=== PATIENT | female | born 1975 | race Caucasian/White ===

== ENCOUNTER 2018-07-22 12:29 | Emergency (ER) | payer OTHER ==
[2018-07-22 12:40] VITALS: BMI 20.3
--- NOTE | 2018-07-22 12:48 | PDOC ---
History of Present Illness - General Chief Complaint: Lightheaded Stated Complaint: FEVER, BODYACHES Time Seen by Provider: 07/22/18 12:47 History Source: Patient Exam Limitations: No Limitations - History of Present Illness Initial Comments: 07/22/18 12:55 43 year old female with PMH multiple UTIs (04/2018, 01/2018) presenting for left sided flank pain x3 days associated with urinary urgency, headache and fever. She denies abdominal pain, nausea, vomiting, diarrhea, constipation, blood in stool, hematuria, vaginal bleeding, vaginal discharge, chest pain, shortness of breath. LMP - 07/03/18 PCP - none Allergies - NKDA Past History - Past Medical History Allergies/Adverse Reactions: Allergies Allergy/AdvReac Type Severity Reaction Status Date / Time No Known Allergies Allergy Verified 07/22/18 12:30 Home Medications: Ambulatory Orders No Home Medications 0 dose .ROUTE UTDICT 09/12/13 Cefpodoxime Proxetil [Vantin -] 200 mg PO BID #20 tablet 07/22/18 COPD: No DVT: No Diabetes: Yes (pre-diabetic) - Immunization History Immunization Up to Date: No - Suicide/Smoking/Psychosocial Hx Smoking History: Never smoked Have you smoked in the past 12 months: No Number of Cigarettes Smoked Daily: 0 Information on smoking cessation initiated: No Hx Alcohol Use: No Drug/Substance Use Hx: No Substance Use Type: None Review of Systems - Review of Systems Able to Perform ROS?: Yes Comments:: 07/22/18 12:58 General: admits to fever, chills, sweats. HEENT: denies sore throat, rhinorrhea, ear pain. Heart: denies chest pain, palpitations, syncope, lower extremity swelling, diaphoresis. Respiratory: denies shortness of breath, cough, sputum production, hematemesis. Abdomen: denies abdominal pain, nausea, vomiting, diarrhea, constipation, blood in stool. : admits to flank pain, urinary urgency. denies dysuria, increased urinary frequency, hematuria, urinary incontinence. Back: denies back pain. Musculoskeletal: denies joint pain, muscle pain, joint swelling. Neurological: admits to headache. denies dizziness, numbness, tingling, weakness. Skin: denies rash, laceration, abrasion. *Physical Exam - Vital Signs Last Vital Signs Temp Pulse Resp BP Pulse Ox 100.1 F H 104 H 18 132/70 100 07/22/18 12:32 07/22/18 12:32 07/22/18 12:32 07/22/18 12:32 07/22/18 12:32 - Physical Exam Comments: 07/22/18 12:58 Appearance: comfortable. HEENT: head is normocephalic, atraumatic. EOMI. PERRLA. Neck: supple. Full ROM. Heart: regular rhythm. no murmurs, rubs or gallops. No pericardial friction rub. Lungs: clear to auscultation bilaterally. no crackles, rhonchi or wheezing. no stridor. Abdomen: soft, nontender. normal bowel sounds. no rebound, guarding, masses. Back: no CVA tenderness bilaterally. Extremities: Peripheral pulses intact and equal. No lower extremity edema. Neurological: Alert. Oriented x3. CN 2-12 grossly intact. Moves all four extremities. ED Treatment Course - LABORATORY CBC & Chemistry Diagram: 07/22/18 15:17 07/22/18 15:17 Medical Decision Making - Medical Decision Making 07/22/18 12:59 43 year old female with PMH multiple UTIs presenting to ED for left flank pain x3 days associated with headache, urinary urgency, fever. Initial Vital Signs Temp Pulse Resp BP Pulse Ox 100.1 F H 104 H 18 132/70 100 07/22/18 12:32 07/22/18 12:32 07/22/18 12:32 07/22/18 12:32 07/22/18 12:32 Febrile. Tachycardic. No hypotension. Tylenol give for fever. UA positive for blood and leukocyte esterase. Ceftriaxone ordered. Urine test negative. Pending labs. Pending CT abdomen pelvis. 07/22/18 17:[address] 07/22/18 18:27 Radiology has been called multiple times for a CT read. 07/22/18 18:38 CT A/P report: subtle 1 mm density seen at or imediately adjacent to the right uretovesical ujnction, possibly representing a claculus (versus an incidental plebolith). Incidental 3.9 cm thick-walled complex fluid structure is noted along the uterine fundus venrally, possibly representing a degenerating leiomyoma and less likely a contiguous adnexal lesion. Recommends non-emergent MRI. Multiple leiomyomas noted. Pt will be discharged with prescription for Vantin, referral for PCP, follow up instructions and strict return precautions. *DC/Admit/Observation/Transfer Diagnosis at time of Disposition: Urinary tract infection, Nephrolithiasis - Discharge Dispostion Disposition: HOME Condition at time of disposition: Stable Decision to Admit order: No - Prescriptions Prescriptions: Cefpodoxime Proxetil [Vantin -] 200 mg PO BID #20 tablet - Referrals - Patient Instructions Printed Discharge Instructions: DI for Urinary Tract Infection (UTI) Additional Instructions: You were seen today for left flank pain. Your blood work was normal. Your urine analysis revealed a urinary tract infection. Your CT of your abdomen and pelvis revealed a possible small (1 mm) stone, that is non-obstructing. Incidentally a 3.9 cm thick-walled fluid structure was identified on your uterus. Please follow up with your OBGYN regarding this for a non-emergent MRI. I have included a copy of your report in your discharge paperwork. You received one dose of an antibiotic here in the Emergency Department. You received Tylenol for your pain. I have prescribed an antibiotic and sent it to your pharmacy. Take all pills as instructed. Do not miss any doses. Take all pills. Take a pro-biotic to prevent antibiotic associated diarrhea. Drink lots of clear fluids, like water or Gatorade, to stay hydrated. Please follow up with your primary care doctor within 5 days. I have set up an appointment for you with [facility]. Bring the paperwork given to you today with you to your appointment. Please follow up with your OBGYN within 5 days. Call tomorrow morning and make an appointment for this week. Bring the paperwork given to you today with you to your appointment. Return to the Emergency Department for fever non-responsive to Tylenol, weakness , increasing pain, chest pain, shortness of breath, or any new, worsening or concerning symptoms. - Post Discharge Activity
[2018-07-22] MEDS ORDERED: ACETAMINOPHEN 500 MG TABLET (FP) PO ONE (12:55)
[2018-07-22] MEDS ORDERED: ACETAMINOPHEN 325 MG TABLET (FP) ONE ×2 (13:18→13:21)
[2018-07-22 13:36] LABS: URINE APPEARANCE SLCLOUDY; URINE BILIRUBIN NEGATIVE (<2.0 mg/dL); URINE COLOR YELLOW; URINE GLUCOSE (UA) NEGATIVE (NEGATIVE); URINE KETONE TRACE (NEGATIVE); URINE NITRITE POSITIVE (NEGATIVE); URINE PROTEIN NEGATIVE (NEGATIVE); URINE UROBILINOGEN NEGATIVE mg/dL (0.2-1.0)
[2018-07-22 13:37] LABS: URINE LEUK ESTERASE 1+ (NEGATIVE)
[2018-07-22 14:01] LABS: EPI CELLS RARE /HPF (FEW); URINE BACTERIA MANY /hpf (NONE SEEN); URINE MUCUS FEW
--- NOTE | 2018-07-22 14:03 | PDOC ---
Attending Attestation - HPI HPI: The patient is a 43 year old Kinyarwanda-speaking female with PMHx of multiple UTI' s (January & April 2018), who presents with 3 days of left-sided flank pain. She also reports associated fever, chills, diaphoresis, headache and urinary urgency. She denies recent abdominal pain, nausea, vomiting, diarrhea, constipation, hematochezia, hematuria, vaginal bleeding or discharge, chest pain, shortness of breath. LMP - 07/03/18 PCP - none Allergies - NKDA - Physicial Exam PE: GENERAL: The patient is in no acute distress. HEAD: Normal with no signs of trauma. EYES: PERRLA, EOMI, sclera anicteric, conjunctiva clear. ENT: Ears normal, nares patent, oropharynx clear without exudates. Moist mucous membranes. NECK: Normal range of motion, supple without lymphadenopathy, JVD, or masses. LUNGS: Breath sounds equal, clear to auscultation bilaterally. No wheezes, and no crackles. HEART:Regular rate and rhythm, normal S1 and S2 without murmur, rub or gallop. ABDOMEN: Soft, nontender, normoactive bowel sounds. No guarding, no rebound. BACK:Mild left-sided flank tenderness. EXTREMITIES: Normal range of motion, no edema. No clubbing or cyanosis. No erythema, or tenderness. NEUROLOGICAL: Cranial nerves II through XII grossly intact. Normal speech. No focal neurological deficits. MUSCULOSKELETAL: Back nontender to palpation, no CVA tenderness SKIN: Warm, Dry, normal turgor, no rashes or lesions noted. <Michaelle Whitmore - Last Filed: 07/22/18 15:49> - Resident Resident Name: Margot Miramontes - ED Attending Attestation I have performed the following: I have examined & evaluated the patient, The case was reviewed & discussed with the resident, I agree w/resident's findings & plan, Exceptions are as noted - Medical Decision Making 07/22/18 15:48 Laboratory Tests 07/22/18 07/22/18 07/22/18 12:00 12:00 15:17 WBC 8.3 Hgb 10.1 L Hct 31.7 L Plt Count 252 D Neutrophils % 64.7 D Lymphocytes % 20.3 D Urine Blood 2+ H Urine Nitrite Positive Ur Leukocyte Esterase 1+ H Urine WBC (Auto) 25 Urine RBC (Auto) 2 Ur Epithelial Cells Rare Urine HCG, Qual Negative Bedside US demonstrated Left hydronephrosis Will do CT 07/22/18 15:[address] (pt with blood and WBC, and flank pain, will rule out infected stone ) If no stone, pt can be discharged on Cefpodoxime for pyelonephritis <Lacy Muse - Last Filed: 07/22/18 15:56>
[2018-07-22] MEDS ORDERED: CEFTRIAXONE 1 GM in DEXTROSE 5%-WATER - 100 ML IVPB ONE (14:27)
[2018-07-22 15:26] LABS: BASO % 0.4 % (0-2.0); EOS % 4.5 % (0-4.5); HEMATOCRIT 31.7 % (32.4-45.2); HEMOGLOBIN 10.1 GM/dL (10.7-15.3); LYMPH % 20.3 % (8-40); MCH 22.1 pg (25.7-33.7); MEAN CELL VOLUME 69.2 fl (80-96); MEAN PLT VOLUME 9.2 fl (7.5-11.1); MONO % 10.1 % (3.8-10.2); NEUT % 64.7 % (42.8-82.8); PLATELET COUNT 252 K/MM3 (134-434); RBC 4.58 M/mm3 (3.60-5.2); RDW 14.4 % (11.6-15.6); WHITE BLOOD COUNT 8.3 K/mm3 (4.0-10.0)
[2018-07-22] MEDS ORDERED: CEFTRIAXONE 1 GM/50 ML BAG ONE (15:29)
[2018-07-22 16:00] VITALS: BP 115/73; PULSE 87
[2018-07-22 16:08] LABS: ALBUMIN 3.3 g/dl (3.4-5.0); ANION GAP 9 MMOL/L (8-16); BLOOD UREA NITROGEN 9 mg/dL (7-18); CALCIUM 8.6 mg/dL (8.5-10.1); CHLORIDE 104 mmol/L (98-107); CO2 26 mmol/L (21-32); GLUCOSE,RANDOM 83 mg/dL (74-106); LIPASE 200 U/L (73-393); POTASSIUM 3.9 mmol/L (3.5-5.1); SGPT/ALT 12 U/L (12-78); SODIUM 139 mmol/L (136-145)
[2018-07-22 16:14] LABS: ALK PHOS 59 U/L (45-117); BILIRUBIN,TOTAL 0.3 mg/dL (0.2-1.0); CREATININE 0.5 mg/dL (0.55-1.02); SGOT/AST 12 U/L (15-37); TOT PROT 7.1 g/dl (6.4-8.2)
[2018-07-22 16:36] LABS: ANISOCYTOSIS OCCASIONAL; PLATELET ESTIMATE ADEQUATE
[2018-07-22 18:46] VITALS: TEMP 98.6
== END 2018-07-22 19:37 | disposition home or self-care (01) ==
LOC: SUPCPDRO 12:29 → JER 12:29
DX: N39.0 Urinary tract infection, site not specified (principal); R31.9 Hematuria, unspecified; N20.0 Calculus of kidney; D25.9 Leiomyoma of uterus, unspecified
CPT/HCPCS: 36415; 74176-TC; 80053; 81003; 81015; 82550; 83690; 84484; 84703; 85025; 87086; 87186; 99282-25

== ENCOUNTER 2018-09-25 14:10 | Emergency (ER) | payer OTHER ==
[2018-09-25 14:15] VITALS: BMI 26.4
--- NOTE | 2018-09-25 15:19 | PDOC ---
History of Present Illness - General Chief Complaint: Blood Pressure Problem Stated Complaint: Blood Pressure Problem Time Seen by Provider: 09/25/18 15:19 History Source: Patient - History of Present Illness Initial Comments: 09/25/18 15:30 The patient is a 43 year old female with a PMH of pre-diabetes who presents to our ED this afternoon following an episode in which she suddenly felt as if she was underwater - her ears were full though she could hear background noises. Patient was evaluated by a nurse at the [employer] [place] where she worked where her SBP was noted to be in the 180's and patient was sent to our ED for further evaluation. Patient denies any associated chest pain, shortness of breath, lightheadedness, palpitations. States immediately before the episode she was feeling overwhelmed thinking about life stressors including her demanding work schedule. 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 Notes she was evaluated by her PMD recently and was told she was pre-diabetic and she should attempt weight loss and dietary modification. Patient denies abdominal pain, nausea/vomiting, diarrhea/constipation, dysuria/ hematuria, numbness/tingling. NKDA Surgical: none reported Social: denies toxic habits PMD: Dr. Abdias Lyons As per EMR, patient last evaluated in or ED in 06/2018 at which time she was diagnosed with a UTI. Past History - Past Medical History Allergies/Adverse Reactions: Allergies Allergy/AdvReac Type Severity Reaction Status Date / Time No Known Allergies Allergy Verified 09/25/18 14:13 Home Medications: Ambulatory Orders No Home Medications 0 dose .ROUTE UTDICT 09/12/13 COPD: No DVT: No Diabetes: Yes (pre-diabetic) - Immunization History Immunization Up to Date: No - Suicide/Smoking/Psychosocial Hx Smoking History: Never smoked Have you smoked in the past 12 months: No Number of Cigarettes Smoked Daily: 0 Hx Alcohol Use: No Drug/Substance Use Hx: No Substance Use Type: None Review of Systems - Review of Systems Constitutional: No: Chills, Fever HEENTM: No: Blurred Vision, Double Vision Respiratory: No: Cough, Shortness of Breath Cardiac (ROS): No: Chest Pain, Lightheadedness, Palpitations, Syncope ABD/GI: No: Constipated, Diarrhea, Nausea, Vomiting : No: Burning, Dysuria Psychiatric: Yes: Anxiety, Stressors *Physical Exam - Vital Signs Last Vital Signs Temp Pulse Resp BP Pulse Ox 98 F 118 H 22 H 173/84 H 100 09/25/18 14:13 09/25/18 14:13 09/25/18 14:13 09/25/18 14:13 09/25/18 14:13 - Physical Exam General Appearance: Yes: Nourished, Appropriately Dressed, Intoxicated HEENT: positive: TRACE. negative: TM Bulging, TM Dull, TM Erythema Neck: positive: Trachea midline, Supple. negative: Lymphadenopathy (R), Lymphadenopathy (L) Respiratory/Chest: positive: Lungs Clear, Normal Breath Sounds Cardiovascular: positive: S1, S2. negative: Edema, JVD Vascular Pulses: Dorsalis-Pedis (R): 2+, Doralis-Pedis (L): 2+ Gastrointestinal/Abdominal: positive: Normal Bowel Sounds, Soft Integumentary: positive: Normal Color, Dry, Warm Neurologic: positive: patient appointment coordinator II-XII NML intact, Fully Oriented, Alert Heart Score/ECG Review - ECG Impressions Comment:: 09/25/18 18:51 Sinus Tachycardia HR 109 no WILBERT/STD/TWI - no prior ECG in system ED Treatment Course - LABORATORY CBC & Chemistry Diagram: 09/25/18 15:50 09/25/18 15:50 Medical Decision Making - Medical Decision Making 09/25/18 15:33 43 year old female presents following resolved episode of ear fullness. Hypertensive @ presentation. No focal neurologic deficits on PE. Frontal diagnosis: anxiety attack, TIA, ear infection, dehydration. Will obtain basic labs, urine , EKG, CT head. Reassess. ECG shows NSR HR 109 with no WILBERT/STD/TWI - no previous ECG in system 09/25/18 16:50 CBC, CMP unremarkable Normotensive 09/25/18 16:50 CT head negative for ischemic process Patient remains intermittently tachycardic (low 100's) will give 1 L IV NS, reassess. 09/25/18 17:47 VSS Patient now normotensive, observed for 2+ hours with no repeat symptoms. Negative head CT -- less concerning for acute life threatening pathology. Clinical suspicion for elevated BP and neuro symptoms likely 2/2 to panic attack. Will discharge patient home with return precautions and PMD follow-up. I discussed the physical exam findings, ancillary test results and final diagnoses with the patient. I answered all of the patient's questions. The patient was satisfied with the care received and felt comfortable with the discharge plan and treatment plan. The patient will return to the Emergency Department with any new, persistent or worsening symptoms. *DC/Admit/Observation/Transfer Diagnosis at time of Disposition: Tachycardia - Discharge Dispostion Disposition: HOME Condition at time of disposition: Good Decision to Admit order: No - Referrals Referrals: Eloy Calero MD [Primary Care Provider] - - Patient Instructions Printed Discharge Instructions: DI for High Blood Pressure Additional Instructions: Your labs, EKG and a cat scan of your head showed no concerning findings. At this time you are safe for discharge home. You must see your primary care doctor in the next 3 days to follow up on your isolated blood pressure reading and evaluation of your general health. Return to the Emergency Department for any new/worsening/concerning symptoms. Dari laboratorios, electrocardiogramas y electrocardiogramas y un escaneo de juan micah de mamadou no mostraron hallazgos preocupantes. En hans momento usted est seguro para el cindy del hogar. Debe consultar a juan mdico de atencin primaria en los prximos 3 pulido para hacer un seguimiento de juan lectura aislada de la presin arterial y de juan estado de christen general. Regrese al Departamento de Emergencias para cualquier sntoma nuevo / que empeora / relacionado. - Post Discharge Activity Forms/Work/School Notes: Back to Work
--- NOTE | 2018-09-25 15:55 | PDOC ---
Attending Attestation - Resident Resident Name: Efrain Templetonica - ED Attending Attestation I have performed the following: I have examined & evaluated the patient, The case was reviewed & discussed with the resident, I agree w/resident's findings & plan, Exceptions are as noted - HPI HPI: 09/25/18 16:52 Ms Young Is a 43-year-old female presented to emergency department with a complaint of ear fullness and mild lightheadedness. This happened while at work today. No associated chest pain, palpitations, shortness of breath. No associated headache. No focal weakness or numbness. Symptoms persisted until arrival to the emergency department. Does like this. Patient believes this is related to stress - Physicial Exam PE: 09/25/18 16:53 GENERAL: The patient is in no acute distress. LUNGS: Breath sounds equal, clear to auscultation bilaterally. No wheezes, and no crackles. HEART:Regular rate and rhythm, normal S1 and S2 without murmur, rub or gallop. ABDOMEN: Soft, nontender, normoactive bowel sounds. No guarding, no rebound. No masses palpable. EXTREMITIES: Normal range of motion, no edema. NEUROLOGICAL: Cranial nerves II through XII grossly intact. Normal speech. No focal neurological deficits. MUSCULOSKELETAL: Back non-tender to palpation SKIN: Warm, Dry, normal turgor, no rashes or lesions noted. - Medical Decision Making 09/25/18 16:59 Twelve-lead EKG was performed and reviewed by me. There is normal sinus rhythm with a tachycardiac rate of 109 bpm. The axis is normal. The intervals are normal - pr:160ms, QRS:92ms, QTc:484ms. There are no ST or T wave abnormalities. 09/25/18 16:59 Laboratory Tests 09/25/18 09/25/18 09/25/18 15:50 15:50 15:59 WBC 8.1 Hgb 11.4 Hct 36.8 D Plt Count 340 D BUN 14 Creatinine 0.5 L Urine HCG, Qual Negative Will re assess vital signs Will check CT 09/26/18 10:49 CT no acute findings Pt states she feels better She is anxious to go home Follow up with PMD Return to the ER for any other concerns or complaints
[2018-09-25 16:14] LABS: BASO % 0.5 % (0-2.0); EOS % 0.2 % (0-4.5); HEMATOCRIT 36.8 % (32.4-45.2); HEMOGLOBIN 11.4 GM/dL (10.7-15.3); LYMPH % 17.1 % (8-40); MCH 21.5 pg (25.7-33.7); MCHC 30.9 g/dl (32.0-36.0); MEAN CELL VOLUME 69.4 fl (80-96); MEAN PLT VOLUME 8.7 fl (7.5-11.1); MONO % 4.6 % (3.8-10.2); NEUT % 77.6 % (42.8-82.8); PLATELET COUNT 340 K/MM3 (134-434); RBC 5.31 M/mm3 (3.60-5.2); RDW 14.8 % (11.6-15.6); WHITE BLOOD COUNT 8.1 K/mm3 (4.0-10.0)
[2018-09-25 16:24] LABS: ADD RBC MORPHOLOGY YES
[2018-09-25] MEDS ORDERED: SODIUM CHLORIDE 0.9% 500 ML INFUS.BAG IV ONE (16:25)
[2018-09-25 16:47] LABS: ALBUMIN 3.8 g/dl (3.4-5.0); ALK PHOS 55 U/L (45-117); ANION GAP 11 MMOL/L (8-16); BILIRUBIN,TOTAL 0.2 mg/dL (0.2-1); BLOOD UREA NITROGEN 14 mg/dL (7-18); CALCIUM 8.6 mg/dL (8.5-10.1); CHLORIDE 106 mmol/L (98-107); CO2 23 mmol/L (21-32); CREATININE 0.5 mg/dL (0.55-1.3); GLUCOSE,RANDOM 93 mg/dL (74-106); POTASSIUM 3.9 mmol/L (3.5-5.1); SGOT/AST 11 U/L (15-37); SGPT/ALT 16 U/L (13-61); SODIUM 140 mmol/L (136-145); TOT PROT 7.3 g/dl (6.4-8.2)
[2018-09-25 18:23] VITALS: BP 134/85; PULSE 100; TEMP 98.9
[2018-09-25 19:14] LABS: ANISOCYTOSIS 1+
[2018-09-25 19:15] LABS: PLATELET ESTIMATE ADEQUATE
--- NOTE | 2018-09-26 14:50 | EKG ---
Test Reason : Blood Pressure : / mmHG Vent. Rate : 109 BPM Atrial Rate : 109 BPM P-R Int : 160 ms QRS Dur : 092 ms QT Int : 360 ms P-R-T Axes : 063 025 027 degrees QTc Int : 484 ms SINUS TACHYCARDIA OTHERWISE NORMAL ECG NO PREVIOUS ECGS AVAILABLE Confirmed by ROGELIO PINO MD ([id number]) on 09/26/2018 2:49:32 PM Referred By: Confirmed By:ROGELIO PINO MD
== END 2018-09-25 18:50 | disposition home or self-care (01) ==
LOC: JER 14:10
PROC: 3E0337Z Introduction of Electrolytic and Water Balance Substance into Peripheral Vein, Percutaneous Approach (ICD-10-PCS; principal; 2018-09-25)
DX: R00.0 Tachycardia, unspecified (principal); R73.03 Prediabetes
CPT/HCPCS: 36415; 70450-TC; 80053; 84703; 85025; 93005; 93010; 99284-25

== ENCOUNTER 2020-12-31 21:26 | Emergency (ER) | payer OTHER ==
[2020-12-31 21:48] VITALS: TEMP 98.4; BMI 24.2
[2020-12-31 22:44] VITALS: BP 166/90; PULSE 95
== END 2020-12-31 23:21 | disposition home or self-care (01) ==
LOC: JER 21:26
DX: I10 Essential (primary) hypertension (principal)
CPT/HCPCS: 93005; 93010; 99284-25

== ENCOUNTER 2023-03-21 14:59 | Emergency (ER) | payer OTHER ==
[2023-03-21 15:11] VITALS: RESP 18; BMI 25.6
[2023-03-21] MEDS ORDERED: SODIUM CHLORIDE 1,000 ML IV STA (15:59)
[2023-03-21] MEDS ORDERED: ACETAMINOPHEN 1000 MG/100 ML BAG IVPB ONE (16:23)
[2023-03-21] MEDS ORDERED: ACETAMINOPHEN INJECTION 100 ML IVPB ONE (16:38)
[2023-03-21 17:44] VITALS: BP 157/71; PULSE 99; TEMP 98.9
[2023-03-21 17:44] LABS: BASO % 0.5 % (0-2.0); EOS % 0.1 % (0-4.5); HEMATOCRIT 36.4 % (32.4-45.2); HEMOGLOBIN 11.8 GM/dL (10.7-15.3); LYMPH % 21.9 % (8-40); MCH 22.5 pg (25.7-33.7); MCHC 32.5 g/dl (32.0-36.0); MEAN CELL VOLUME 69.1 fl (80-96); MEAN PLT VOLUME 9.1 fl (7.5-11.1); MONO % 7.3 % (3.8-10.2); NEUT % 70.2 % (42.8-82.8); PLATELET COUNT 297 10^3/uL (134-434); RBC 5.27 M/mm3 (3.60-5.2); RDW 14.4 % (11.6-15.6)
[2023-03-21 17:45] LABS: PH,URINE 5.5 (5.0-8.0); URINE APPEARANCE CLEAR; URINE BILIRUBIN NEGATIVE (NEGATIVE); URINE COLOR YELLOW; URINE GLUCOSE (UA) NEGATIVE (NEGATIVE); URINE KETONE NEGATIVE (NEGATIVE); URINE LEUK ESTERASE NEGATIVE (NEGATIVE); URINE NITRITE NEGATIVE (NEGATIVE); URINE PROTEIN NEGATIVE (NEGATIVE); URINE UROBILINOGEN 0.2 mg/dL (0.2-1.0)
[2023-03-21 17:48] LABS: HCG,QUALITATIVE URINE Negative
[2023-03-21 17:50] LABS: PROTHROMBIN TIME (PATIENT) 11.6 SEC (9.7-13.0)
[2023-03-21 17:53] LABS: ACTIVATED PTT 31.6 SECONDS (25.2-36.5)
[2023-03-21 18:07] LABS: CALCIUM 9.9 mg/dL (8.5-10.1)
[2023-03-21 18:08] LABS: ALBUMIN 4.3 g/dl (3.4-5.0); BLOOD UREA NITROGEN 8.4 mg/dL (7-18); MAGNESIUM 2.2 mg/dL (1.8-2.4)
[2023-03-21 18:11] LABS: CREATININE 0.6 mg/dL (0.55-1.3)
[2023-03-21 18:13] LABS: BILIRUBIN,TOTAL 0.3 mg/dL (0.2-1); TOT PROT 7.9 g/dl (6.4-8.2)
== END 2023-03-21 19:03 | disposition home or self-care (01) ==
LOC: JER 14:59
PROC: 3E0337Z Introduction of Electrolytic and Water Balance Substance into Peripheral Vein, Percutaneous Approach (ICD-10-PCS; principal; 2023-03-21)
DX: R42 Dizziness and giddiness (principal); R05.9 Cough, unspecified; R07.0 Pain in throat; R09.81 Nasal congestion; Z20.822 Contact with and (suspected) exposure to COVID-19
CPT/HCPCS: 0241U-QW; 36415; 70450-TC; 80053; 81003; 83735; 84484; 84703; 85025; 85610; 85730; 87086; 87651; 93005; 93010; 99285-25

== ENCOUNTER 2024-04-07 20:00 | Emergency (ER) | payer OTHER ==
[2024-04-07 20:07] VITALS: BP 159/76; PULSE 98; RESP 20; TEMP 98.4; BMI 24.9
[2024-04-07 21:32] LABS: BASO % 0.3 % (0-2.0); EOS % 0.3 % (0-4.5); HEMOGLOBIN 11.2 GM/dL (10.7-15.3); LYMPH % 34.3 % (8-40); MCH 22.6 pg (25.7-33.7); MCHC 32.8 g/dl (32.0-36.0); MEAN CELL VOLUME 68.9 fl (80-96); MEAN PLT VOLUME 9.3 fl (7.5-11.1); MONO % 7.8 % (3.8-10.2); NEUT % 57.3 % (42.8-82.8); PLATELET COUNT 276 10^3/uL (134-434); RBC 4.94 M/mm3 (3.60-5.2); RDW 14.4 % (11.6-15.6); WHITE BLOOD COUNT 7.6 K/mm3 (4.0-10.0)
[2024-04-07 21:37] LABS: INR 1.03 (0.83-1.09); PROTHROMBIN TIME (PATIENT) 11.6 SEC (9.7-13.0)
[2024-04-07 21:40] LABS: ACTIVATED PTT 31.7 SECONDS (25.2-36.5)
[2024-04-07 21:51] LABS: POTASSIUM 3.8 mmol/L (3.5-5.1)
[2024-04-07 21:53] LABS: BLOOD UREA NITROGEN 12.4 mg/dL (7-18); CALCIUM 9.2 mg/dL (8.5-10.1); MAGNESIUM 2.1 mg/dL (1.8-2.4)
[2024-04-07 21:57] LABS: CREATININE 0.7 mg/dL (0.55-1.3)
[2024-04-07 21:58] LABS: BILIRUBIN,TOTAL 0.4 mg/dL (0.2-1); TOT PROT 7.3 g/dl (6.4-8.2)
== END 2024-04-07 22:28 | disposition home or self-care (01) ==
LOC: JER 20:00
DX: R00.2 Palpitations (principal); R42 Dizziness and giddiness; R94.6 Abnormal results of thyroid function studies
CPT/HCPCS: 36415; 71046-TC-FY; 80053; 83735; 84439; 84443; 84484; 84703; 85025; 85610; 85730; 93005; 93010; 99285-25